=== PATIENT | male | born 1995 | race Caucasian/White ===

== ENCOUNTER 2017-05-09 21:57 | Emergency (ER) | payer BC ==
[~2017-05-09] VITALS: Ht 170.2 cm; Wt 141.0 kg
[2017-05-09 22:02] VITALS: Ht 170.2 cm; Wt 141.0 kg
[2017-05-09 22:27] VITALS: O2SAT 98
[2017-05-09] MEDS ORDERED: SODIUM CHLORIDE 0.9% 1000ML 1,000 ML IV ONE (22:30)
--- NOTE | 2017-05-09 22:44 | DIAGNOSTIC IMAGING REPORT ---
SINGLE VIEW CHEST CLINICAL HISTORY: Atypical chest pain. FINDINGS: An AP, portable, upright chest radiograph is obtained. No prior studies are available for comparison at the time of dictation. The examination is degraded by portable technique, large body habitus, and apical lordotic positioning. The cardiomediastinal silhouette is unremarkable. An accessory azygous fissure is incidentally noted. The lungs and pleural spaces are clear. No pneumothorax is seen. The bony thorax is grossly intact. IMPRESSION: No active disease in the chest. Electronically signed by: Reynaldo Duran M.D. 05/09/2017 10:43 PM Dictated Date/Time: 05/09/2017 10:42 PM
[2017-05-09 22:49] LABS: BASO % 0.5 %; BASO ABS # 0.06 K/uL (0-0.2); COMPLETE YES; EOS % 3.5 %; HEMATOCRIT 46.1 % (42-52); IG% 1.3 %; LYMPH % 22.5 %; LYMPH ABS # 2.67 K/uL (1.2-3.4); MEAN CELL VOLUME 84.1 fL (80-100); MEAN CORPUSCULAR HGB CONC 34.5 g/dl (32-36); MEAN PLATELET VOLUME 9.7 fL (7.4-10.4); MONO % 6.6 %; NEUT % 65.6 %; PLATELET COUNT 271 K/uL (130-400); RED BLOOD COUNT 5.48 M/uL (4.7-6.1); WHITE BLOOD COUNT 11.85 K/uL (4.8-10.8)
[2017-05-09] MEDS ORDERED: FLUT0.15 NAE (23:02)
[2017-05-09] MEDS ORDERED: MULT-506 PO (23:02)
[2017-05-09 23:06] LABS: BUN/CREATININE RATIO 14.5 (10-20); CALCIUM 9.7 mg/dl (8.5-10.1); CREATININE 1.08 mg/dl (0.60-1.40); POTASSIUM 3.9 mmol/L (3.5-5.1)
[2017-05-09 23:55] VITALS: TEMP 36.7
[2017-05-10 01:39] VITALS: BP 135/81; PULSE 100; O2SAT 97
--- NOTE | 2017-05-10 03:46 | EMERGENCY ROOM VISIT NOTE ---
History First contact with patient: 22:08 Chief Complaint: CHEST PAIN Stated Complaint: PAIN IN CHEST TINGLING ARMS AND LEGS Nursing Triage Summary: CHEST PAIN ON OFF X 1 MONTH. PT STATES PAIN IS CURRENTLY 4/10. STATES PAIN IS MID CHEST. DENIES RADIATION NUMBNESS TINGLING OTHER COMPLAINTS History of Present Illness The patient is a 22 year old male who presents to the Emergency Room with complaints of intermittent chest pain off and on for the past 4 or 5 weeks. The patient states the discomfort is typically in the middle of his chest or in the upper abdomen. The pain does not seem to improve or worsen with activity. At times the pain as dull, but sometimes it will also be sharp. It does not appear to improve or worsen with food. The patient has not had fever or chills. No shortness of breath. He will have intermittent episodes where he will have numbness into his hands. The patient is following with a psychiatrist for counseling, and is under increased stressors after his father . The patient is not currently on any medication. He has been eating, drinking, and sleeping as normal. He does not have a history of cardiac or pulmonary disease. He does report recent travel history as he drove to [place] and back within the past few months. His discomfort returned tonight about 4 hours ago, prompting his presentation to the department. He rates the current discomfort a 4/10. Review of Systems More than 10 systems were reviewed and otherwise negative with the exception of history of present illness. Past Medical/Surgical History Medical Problems: (1) Seasonal allergies Family History Cancer Social History Smoking Status: Never Smoker Alcohol Use: occasionally Drug Use: none Marital Status: in relationship Housing Status: lives with family Occupation Status: employed Current/Historical Medications Scheduled Fluticasone Propionate (Nasal) (Flonase Allergy Relief), 2 SPRAYS [place] DAILY Multivitamin (Multivitamin), 1 TAB PO DAILY Physical Exam Vital Signs Date Time Temp Pulse Resp B/P (MAP) Pulse Ox O2 Delivery O2 Flow Rate FiO2 05/10/17 01:39 100 18 135/81 97 Room Air 05/09/17 23:55 36.7 103 20 146/94 98 Room Air 05/09/17 22:42 36.8 108 20 127/95 98 Room Air 05/09/17 22:30 98 Room Air 05/09/17 22:27 98 Room Air 05/09/17 22:26 105 05/09/17 22:02 37.0 115 20 177/119 99 Room Air Physical Exam VITALS: Vitals are noted on the nurse's note and reviewed by myself. Vital signs with slight tachycardia GENERAL: Well-developed, well-nourished, white male, who is in no acute distress and resting comfortably. Patient is cooperative with the examination. HEAD: Normocephalic atraumatic. EARS: External ear normal. External auditory canals clear, tympanic membranes pearly bolanos without erythema or effusion bilaterally. EYES: Pupils equal round and reactive to light and accommodation. Conjunctivae without injection, sclerae without icterus. Extraocular movements intact. NOSE: Patent, turbinates without inflammation or discharge. MOUTH: Mucous membranes moist. Tonsils are not enlarged. Pharynx without erythema, blood, or exudate. Uvula midline. Airway patent. NECK: Supple without nuchal rigidity. No lymphadenopathy. No thyromegaly. Cervical spine is nontender. HEART: Regular rate and rhythm without murmurs gallops or rubs. LUNGS: Clear to auscultation bilaterally without wheezes, rales or rhonchi. No retractions or accessory muscle use. ABDOMEN: Positive normal bowel sounds x 4. Soft, nontender, without masses or organomegaly. No guarding or rebound tenderness. MUSCULOSKELETAL: No muscle atrophy, erythema, or edema noted. Full range of motion without joint tenderness in all extremities. No tenderness to palpation. Normal gait. Strength 5/5 throughout. NEURO: Patient was alert and oriented to person place and time. CN II through XII grossly intact. Medical Decision & Procedures ER Provider Diagnostic Interpretation: Preliminary Findings Only See Final Report For Complete Findings US RUQ: Hepatomegaly, 19 cm. Echogenic liver suggesting fatty infiltration or hepatocellular disease. No obvious gallstones. Common bile duct not well visualized. Pancreas is obscured. SINGLE VIEW CHEST CLINICAL HISTORY: Atypical chest pain. FINDINGS: An AP, portable, upright chest radiograph is obtained. No prior studies are available for comparison at the time of dictation. The examination is degraded by portable technique, large body habitus, and apical lordotic positioning. The cardiomediastinal silhouette is unremarkable. An accessory azygous fissure is incidentally noted. The lungs and pleural spaces are clear. No pneumothorax is seen. The bony thorax is grossly intact. IMPRESSION: No active disease in the chest. Laboratory Results 05/09/17 22:17 Red Blood Count 5.48, Mean Corpuscular Volume 84.1, Mean Corpuscular Hemoglobin 29.0, Mean Corpuscular Hemoglobin Concent 34.5, Mean Platelet Volume 9.7, Neutrophils (%) (Auto) 65.6, Lymphocytes (%) (Auto) 22.5, Monocytes (%) (Auto) 6.6, Eosinophils (%) (Auto) 3.5, Basophils (%) (Auto) 0.5, Neutrophils # (Auto) 7.77, Lymphocytes # (Auto) 2.67, Monocytes # (Auto) 0.78, Eosinophils # (Auto) 0.42, Basophils # (Auto) 0.06 05/09/17 22:17 Test 05/09/17 22:17 White Blood Count 11.85 K/uL (4.8-10.8) Red Blood Count 5.48 M/uL (4.7-6.1) Hemoglobin 15.9 g/dL (14.0-18.0) Hematocrit 46.1 % (42-52) Mean Corpuscular Volume 84.1 fL (80-100) Mean Corpuscular Hemoglobin 29.0 pg (25-34) Mean Corpuscular Hemoglobin Concent 34.5 g/dl (32-36) Platelet Count 271 K/uL (130-400) Mean Platelet Volume 9.7 fL (7.4-10.4) Neutrophils (%) (Auto) 65.6 % Lymphocytes (%) (Auto) 22.5 % Monocytes (%) (Auto) 6.6 % Eosinophils (%) (Auto) 3.5 % Basophils (%) (Auto) 0.5 % Neutrophils # (Auto) 7.77 K/uL (1.4-6.5) Lymphocytes # (Auto) 2.67 K/uL (1.2-3.4) Monocytes # (Auto) 0.78 K/uL (0.11-0.59) Eosinophils # (Auto) 0.42 K/uL (0-0.5) Basophils # (Auto) 0.06 K/uL (0-0.2) RDW Standard Deviation 40.3 fL (36.4-46.3) RDW Coefficient of Variation 13.3 % (11.5-14.5) Immature Granulocyte % (Auto) 1.3 % Immature Granulocyte # (Auto) 0.15 K/uL (0.00-0.02) Anion Gap 7.0 mmol/L (3-11) Est Creatinine Clear Calc Drug Dose 144.5 ml/min Estimated GFR () 111.5 Estimated GFR (Non- 96.2 BUN/Creatinine Ratio 14.5 (10-20) Calcium Level 9.7 mg/dl (8.5-10.1) Total Bilirubin 0.4 mg/dl (0.2-1) Aspartate Amino Transf (AST/SGOT) 86 U/L (15-37) Alanine Aminotransferase (ALT/SGPT) 199 U/L (12-78) Alkaline Phosphatase 97 U/L (45-117) Total Protein 8.6 gm/dl (6.4-8.2) Albumin 4.2 gm/dl (3.4-5.0) Globulin 4.4 gm/dl (2.5-4.0) Albumin/Globulin Ratio 1.0 (0.9-2) Lipase 152 U/L (73-393) Chemistry Specimen Hemolysis Medications Administered Medications (Trade) Dose Ordered Sig/[place] Route Start Time Stop Time Status Last Admin Dose Admin Sodium Chloride 1,000 ml @ 999 mls/hr Q1H1M ONCE IV 05/09/17 22:30 05/09/17 23:30 DC 05/09/17 22:33 999 MLS/HR ED Course Physical exam and history were performed. Nursing notes, EMR, and Medication List were personally reviewed. Patient appears to have intermittent chest pain symptoms over the past several weeks. On examination the patient does have some mild tachycardia, but he overall appears well and certainly is not toxic. EKG was performed and showed sinus tachycardia without ST elevation or ischemia. IV access was established and labs were obtained. The patient was hydrated with normal saline. Chest x- ray did not show acute findings. The patient's blood work is as above and was reviewed. The patient has a just slightly elevated white blood cell count of 11.85. He does not have a significant anemia, bandemia, or gross electrolyte imbalance. Lipase is not diagnostic. The patient does have some elevated transaminases of unknown etiology. Troponin and d-dimer 1 are both negative. His remaining labs are fairly unremarkable. I discussed options of care with the patient, and elected to perform an ultrasound as his symptoms could represent a biliary etiology. Ultrasound does not show evidence of gallbladder infection or obvious etiology of his symptoms. He does have signs of fatty liver, and this likely is the source of his elevated liver function tests. Overall the patient appears well for discharge home. I suspect many of his symptoms are related to stress/anxiety. The patient agrees this could be the case as well. He does have outpatient services with a psychiatrist, whom he is following with. The patient should continue following with the psychiatrist. He is also to follow with his primary care physician. He was otherwise invited back to the ER with any new, worsening, or concerning symptoms. The chart was completed utilizing [employer] Speech Voice Recognition Software. Grammatical errors, random word insertions, pronoun errors, and incomplete sentences are an occasional consequence of this system due to software limitations, ambient noise, and hardware issues. Any formal questions or concerns about the content, text, or information contained within the body of this dictation should be directly addressed to the provider for clarification. . Medical Decision Differential diagnosis includes, but is not limited to: Myocardial infarction, dysrhythmia, pericarditis, pneumothorax, aortic aneurysm/dissection, DVT/PE, anxiety, GERD, PUD, electrolyte imbalance, thyroid disorder, pneumonia, bronchitis, pancreatitis, and others Medication Reconcilliation Current Medication List: was personally reviewed by me Blood Pressure Screening Patient's blood pressure: Elevated blood pressure Blood pressure disposition: Elevated BP felt to be situational Impression Primary Impression: Substernal chest pain Departure Information Dispostion Home / Self-Care Condition GOOD Forms HOME CARE DOCUMENTATION FORM, IMPORTANT VISIT INFORMATION Patient Instructions My [facility] Additional Instructions You were seen and evaluated today on an emergency basis only. This is not a substitute for, or an effort to provide, complete comprehensive medical care. It is not possible to recognize and treat all injuries or illnesses in a single emergency department visit. For this reason it is recommended that you followup with your primary care physician this week for ongoing care and evaluation. Drink plenty of fluids and remain well hydrated. You are welcome to return to the emergency department anytime with new, worsening, or concerning symptoms.
--- NOTE | 2017-05-10 06:38 | DIAGNOSTIC IMAGING REPORT ---
BILIARY ULTRASOUND CLINICAL HISTORY: Epigastric pain and elevated LFTs COMPARISON STUDY: No previous studies for comparison. FINDINGS: The pancreas was nonvisualized. The liver is of increased echogenicity. This is a nonspecific finding often seen in hepatic steatosis. There is no right-sided hydronephrosis. There is no ductal dilatation. The common bile duct measured 4 mm. No gallstones were visualized. The study was limited from a technical standpoint due to the patient's body habitus. IMPRESSION: 1. Increased hepatic echogenicity, nonspecific finding most often seen in hepatic steatosis 2. No gallstones identified. No evidence of ductal dilatation 3. Nondiagnostic evaluation of the pancreas Electronically signed by: Zhao Haywood M.D. 05/10/2017 6:36 AM Dictated Date/Time: 05/10/2017 6:35 AM
== END 2017-05-10 01:39 | disposition home or self-care (01) ==
LOC: C.EDB 21:57 → C.EDA 05-10 01:39
DX: R07.2 Precordial pain (principal); R10.13 Epigastric pain; R20.2 Paresthesia of skin